=== PATIENT | female | born 1960 | race Caucasian/White ===

== ENCOUNTER → 2022-09-29 23:18 | Outpatient (CLI) | payer MEDICARE, OTHER, SELFPAY | PROVIDERS: PCP Nurse Practitioner Family; Visit Provider Nurse Practitioner Family | DX: L02.416 Cutaneous abscess of left lower limb (principal); T14.8XXA Other injury of unspecified body region, initial encounter | CPT/HCPCS: 87070; 87205 ==

== ENCOUNTER → 2022-10-08 16:49 | Outpatient (CLI) | payer MEDICARE, OTHER, SELFPAY ==
[2022-10-08 12:49] LABS: Basophils % 0.5 % (0.1-2.0); Eosinophils # 0.2 K/mm3 (0.0-0.4); Hematocrit 41.8 % (37.0-47.0); Hemoglobin 13.7 g/dL (12.2-16.2); Lymphocytes # 3.4 K/mm3 (0.7-4.5); Lymphocytes % 43.3 % (10-50); Mean Corpuscular HGB Conc 32.7 g/dL (31.8-35.4); Mean Corpuscular Hemoglobin 29.6 pg (27.0-31.2); Mean Corpuscular Volume 90.7 fl (81-99); Mean Platelet Volume 9.3 fl (7.4-10.4); Monocytes # 0.3 K/mm3 (0.1-1.0); Monocytes % 4.1 % (1.7-9.3); Neutrophils # 3.9 K/mm3 (1.8-7.8); Neutrophils % 49.1 % (37.0-80.0); Platelet Count 325 K/mm3 (142-424); Red Blood Count 4.61 M/mm3 (4.20-5.40); Red Cell Distribution Width 13.5 % (11.5-17.5); White Blood Count 7.9 K/mm3 (4.8-10.8)
[2022-10-08 14:13] LABS: Alanine Aminotransferase 66 U/L (12-78); Albumin/Globulin Ratio 1.3 (1.1-1.8); Alkaline Phosphatase 113 U/L (38-126); Anion Gap 11.9 mEq/L (5-15); Aspartate Amino Transferase 72 U/L (14-36); Blood Urea Nitrogen 9 mg/dl (7-17); Calcium 9.3 mg/dl (8.4-10.2); Carbon Dioxide 34 mmol/L (22.0-30.0); Chloride 100 mmol/L (98-107); Chol/HDL Ratio 2.1 (1-3.5); Cholesterol 148 mg/dl (140-200); Estimated Glomerular Filt Rate 63 ml/min (>60); GFR (African American) 77 ML/MIN (>60); Globulin 3.2 g/dL (1.3-3.2); Glucose 89 mg/dl (74-100); HDL Cholesterol 69 mg/dl (40-60); Potassium 3.9 mmoL/L (3.5-5.1); Sodium 142 mmol/L (136-145); Total Protein,Serum 7.2 g/dl (6.3-8.2); Triglycerides 215 mg/dl (30-150); VLDL Cholesterol 43 mg/dL (0-40)
[2022-10-08 14:18] LABS: Hemoglobin A1C 5.3 % (4.0-6.0)
[2022-10-08 14:19] LABS: Bilirubin,Total 0.1 mg/dl (0.2-1.3)
[2022-10-08 14:23] LABS: Direct LDL Cholesterol 49.27 mg/dL (100-129)
[2022-10-08 14:43] LABS: Thyroid Stimulating Hormone 1.08 uIU/mL (0.465-4.68)
== END ==
PROVIDERS: PCP Emergency Medicine; Visit Provider Emergency Medicine
DX: L30.9 Dermatitis, unspecified (principal); Z79.899 Other long term (current) drug therapy
CPT/HCPCS: 80053; 80061; 83036; 84443; 85025

== ENCOUNTER 2022-12-21 15:24 | Emergency (ER) | payer MEDICARE, OTHER, SELFPAY ==
[2022-12-21 15:40] VITALS: BP 185/90; PULSE 69; RESP 20; TEMP 36.8; O2SAT 96; BMI 20.4
--- NOTE | 2022-12-21 15:42 | HMH.EDGENADL ---
Discharge Plan Disposition Patient Disposition: Home, Self-Care Condition: Good Prescriptions Prescriptions: No Action clonazepam [Klonopin] 0.5 mg tablet 0.5 mg PO BID Qty: 60 1RF gabapentin 600 mg tablet 600 mg PO TID Qty: 90 1RF cephalexin 500 mg capsule 500 mg PO BID Qty: 14 0RF sumatriptan succinate 25 mg tablet See Rx Instructions PO .COMPLEX Qty: 10 0RF Rx Instructions: take 1 tab at onset of headache; if no relief may repeat 1 tab after at least 2 hrs; max = 4 tabs/24 hr PO mupirocin 2 % ointment 1 applic topical BID Qty: 22 0RF hydrocodone-acetaminophen 5-325 mg tablet 1 tab PO BID Qty: 20 0RF Referrals Follow up/Referrals: Alexx Henderson MD [Primary Care Provider] - See instructions Activity Restrictions/Add. Instructions Additional Instructions/Restrictions: Please follow-up with your primary care provider and with previously scheduled urology appointment.. Please return to the emergency department if you develop any new or worsening symptoms or become concerned for your health. Clinical Impressions Clinical Impression: Hematuria, Presence of indwelling Wilder catheter Instructions Patient Instructions: How to Care for Your Wilder Catheter -- Female Discharge ED Provider: Jeffrey Vogel General Adult HPI General Chief complaint: Urogenital-Female Stated complaint: cannot urinate, has wilder cath in place Time Seen by Provider: 12/21/22 15:32 History of Present Illness HPI narrative: 62-year-old female, history of anxiety, presents with concerns about her urinary catheter. She reports that she was having difficulty urinating, felt full and tender approximately 4 days ago. She was seen at [facility] that time where a Wilder catheter was placed. She was instructed to leave it in until follow-up with urology on 12/27, 6 days from now. She reports that she was initially having good output, emptying the bag 2-3 times per day. Since yesterday she has had much less urinary output. Denies any blood in the urine, sense of pelvic fullness, abdominal pain. Denies any fevers chills or systemic symptoms. She reports that she is unsure why she had difficulty urinating to begin with and was not given any answers at [facility]. She reports no prior history of pelvic/abdominal surgery nor prior urinary obstruction. Denies any current flank pain. She has urine present in the bag currently, last emptied it 45 minutes ago. She reports normal p.o. intake. Reports history of hysterectomy, denies history of pelvic organ prolapse. Related Data Previous Rx's Medication Instructions Recorded mupirocin 2 % topical ointment 1 applic topical BID #22 grams 09/29/22 sumatriptan succinate 25 mg tablet See Rx Instructions PO .COMPLEX 09/29/22 #10 tabs hydrocodone 5 mg-acetaminophen 325 1 tab PO BID #20 tabs 10/08/22 mg tablet cephalexin 500 mg capsule 500 mg PO BID #14 caps 12/15/22 clonazepam 0.5 mg tablet (Klonopin) 0.5 mg PO BID #60 tabs 12/15/22 gabapentin 600 mg tablet 600 mg PO TID #90 tabs 12/15/22 Allergies Allergy/AdvReac Type Severity Reaction Status Date / Time codeine Allergy Intermediate Cramping Verified 12/15/22 13:48 of the Muscles toradol Allergy Severe Anaphylaxis Uncoded 12/15/22 13:48 [facility] Disclaimer: The information contained in this section may have been updated after the patient was seen, as this information can be updated by other users. Medical History Anxiety Opiate addiction Surgical History Hx of bilateral hip replacements Family History Other Asthma Cancer Coronary artery disease Diabetes Heart attack Hyperlipidemia Social History Smoking Status: Never smoker alcohol intak
[2022-12-21 16:00] VITALS: BP 168/70; PULSE 65; O2SAT 98
[2022-12-21 16:12] LABS: Basophils % 0.6 % (0.1-2.0); Eosinophils # 0.3 K/mm3 (0.0-0.4); Eosinophils % 4.1 % (0.1-12.0); Hematocrit 40.1 % (37.0-47.0); Hemoglobin 12.7 g/dL (12.2-16.2); Lymphocytes # 3.3 K/mm3 (0.7-4.5); Lymphocytes % 44.5 % (10-50); Mean Corpuscular HGB Conc 31.7 g/dL (31.8-35.4); Mean Corpuscular Hemoglobin 29.1 pg (27.0-31.2); Mean Corpuscular Volume 91.9 fl (81-99); Mean Platelet Volume 8.6 fl (7.4-10.4); Monocytes # 0.5 K/mm3 (0.1-1.0); Monocytes % 6.2 % (1.7-9.3); Neutrophils # 3.3 K/mm3 (1.8-7.8); Neutrophils % 44.7 % (37.0-80.0); Platelet Count 278 K/mm3 (142-424); Red Blood Count 4.37 M/mm3 (4.20-5.40); White Blood Count 7.5 K/mm3 (4.8-10.8)
--- NOTE | 2022-12-21 16:12 | PC.NURSE ---
15ml in bladder via bladder scanner
[2022-12-21 16:25] LABS: Alanine Aminotransferase 24 U/L (12-78); Albumin Level 3.7 g/dl (3.5-5.0); Albumin/Globulin Ratio 1.2 (1.1-1.8); Alkaline Phosphatase 68 U/L (38-126); Anion Gap 6.4 mEq/L (5-15); Aspartate Amino Transferase 36 U/L (14-36); Bilirubin,Total 0.2 mg/dl (0.2-1.3); Blood Urea Nitrogen 5 mg/dl (7-17); Calcium 8.8 mg/dl (8.4-10.2); Carbon Dioxide 31 mmol/L (22.0-30.0); Chloride 106 mmol/L (98-107); Creatinine Clearance Estimated 50 mL/min (50-200); Estimated Glomerular Filt Rate 85 ml/min (>60); GFR (African American) 103 ML/MIN (>60); Glucose 92 mg/dl (74-100); Potassium 3.4 mmoL/L (3.5-5.1); Sodium 140 mmol/L (136-145); Total Protein,Serum 6.7 g/dl (6.3-8.2)
[2022-12-21 16:30] VITALS: BP 146/69; PULSE 61; O2SAT 98
[2022-12-21 16:31] LABS: Microscopic, Urine URINE MICROSCOPIC (MICROSCOPIC)
[2022-12-21 16:35] LABS: Appearance,Urine CLEAR (Clear); Bilirubin,Urine Negative (Negative); Blood, Urine 3+ (Negative); Color,Urine YELLOW (Yellow); Glucose,Urine (UA) Negative (Negative); Ketones,Urine Negative (Negative); Leukocyte Esterase,Urine TRACE (Negative); Nitrate,Urine Negative (Negative); Protein,Urine 1+ (Negative); Urobilinogen,Urine 0.2 EU/dl (0.2)
[2022-12-21 16:53] LABS: Bacteria,Urine 2+ /lpf; Calcium Oxalate Crystals,Urine Trace /lpf; RBC,Urine 20-50 #/hpf (0-3); Squamous Epithelial Cell,Urine Occasional #/hpf (0-5); WBC,Urine Occasional #/hpf (0-3)
[2022-12-21 17:12] VITALS: BP 140/70; PULSE 62; RESP 18; TEMP 36.8; O2SAT 98
--- NOTE | 2022-12-24 08:10 | PC.NURSE ---
made contacted with pt daughter (used number listed in pt chart). Pt daughter reports pt does not have a working phone at this time. Asked if daughter could make contact with pt so that I could follow up with pt. States she will have pt call ER back. Did verify pharmacy with pts daughter, correct as listed on chart. Was trying to make contact with pt r/t Dr. Vogel request r/t urine culture results and needing to call in antibiotic for pt.
== END 2022-12-21 17:18 | disposition home or self-care (01) ==
PROVIDERS: Emergency Provider Emergency Medicine; PCP Emergency Medicine
DX: R31.9 Hematuria, unspecified (principal); F41.9 Anxiety disorder, unspecified
CPT/HCPCS: 80053; 81001; 85025; 87086; 87088; 87186; 99285

== ENCOUNTER 2023-05-06 09:18 | Observation (INO) | payer MEDICARE, OTHER, SELFPAY ==
[2023-05-06] VITALS (8 sets, daily range): BP systolic 138–209; BP diastolic 63–105; PULSE 59–72; RESP 18–20; TEMP 36.6–36.8; O2SAT 95–100; BMI 24.0; BMI 22.3
--- NOTE | 2023-05-06 09:18 | ECG_ITS ---
APPROVED REPORT Exam: Resting ECG HR:67 bpm ECG Measurements Heart Rate 67 AXES NV 168 P 68 QRSd 86 QRS 70 QT 392 T 48 QTc 407 Conclusion SINUS RHYTHM NONSPECIFIC T-WAVE ABNORMALITY BORDERLINE ECG UNCONFIRMED REPORT Electronically signed by : Thiago Maxwell MD 05/06/2023 17:59:19
--- NOTE | 2023-05-06 09:19 | PC.NURSE ---
FSBS: 130 Dr. Martinez at BS for pt eval
--- NOTE | 2023-05-06 09:24 | CT_ITS ---
FINAL REPORT TECHNIQUE: NASCET technique utilized for stenosis evaluation. CLINICAL HISTORY: right sided weakness x 2 days stroke protocol COMPARISON: None FINDINGS: RIGHT CAROTID: There is moderate vascular calcification in the proximal internal carotid artery, with less than 50% stenosis. LEFT CAROTID: There is moderate vascular calcification in the proximal internal carotid artery, with less than 50% stenosis. VERTEBRALS: The vertebrals are patent. No significant stenosis is present. The left vertebral artery is dominant. IMPRESSION: Moderate vascular calcification with less than 50% stenosis in the carotid arteries bilaterally. The vertebral arteries are unremarkable in appearance. Reviewed, Interpreted and Dictated by Cuate Moya MD Transcribed by Oriana Loco Authenticated and [facility]
--- NOTE | 2023-05-06 09:24 | CT_ITS ---
FINAL REPORT TECHNIQUE: thin section axial CT with and without IV contrast supplemented with multiplanar 3-D reconstruction of the head. This study was performed with techniques to keep radiation doses as low as reasonably achievable, (ALARA)individualized dose reduction techniques using automated exposure control or adjustment of mA and/or kV according to the patient's size were employed. NASCET technique utilized for stenosis evaluation. CLINICAL HISTORY: right sided weakness x 2 days stroke protocol COMPARISON: None FINDINGS: HEAD: CTA: The cranial circulation is unremarkable. There is no significant stenosis, aneurysm or occlusion. NECK: RIGHT CAROTID: There is moderate vascular calcification of the proximal internal carotid artery. There is less than 50% stenosis in the carotid bifurcation. LEFT CAROTID: There is moderate vascular calcification of the proximal internal carotid artery. There is less than 50% stenosis in the carotid bifurcation. VERTEBRALS: The vertebrals are patent. No significant stenosis is present. The left vertebral artery is dominant. IMPRESSION: No significant intracranial arterial abnormality. Less than 50% stenosis of the internal carotid arteries bilaterally. Reviewed, Interpreted and Dictated by Cuate Moya MD Transcribed by Oriana Loco Authenticated and [facility]
--- NOTE | 2023-05-06 09:24 | CT_ITS ---
FINAL REPORT TECHNIQUE: multiple axial CT images were performed from the foramen magnum to the vertex without enhancement. CLINICAL HISTORY: right sided weakness x 2 days stroke protocol COMPARISON: None FINDINGS: The ventricles are enlarged. There is mild diffuse atrophy. There is no evidence of hemorrhage. No masses are identified. No extra-axial fluid is seen. Minimal right maxillary mucoperiosteal thickening is present. IMPRESSION: No acute intracranial abnormality. Reviewed, Interpreted and Dictated by Cuate Moya MD Transcribed by Oriana Loco Authenticated and . [facility]
--- NOTE | 2023-05-06 09:27 | HMH.EDGENADL ---
Discharge Plan Disposition Patient Disposition: Admitted Prescriptions Prescriptions: No Action sumatriptan succinate 25 mg tablet See Rx Instructions PO .COMPLEX Qty: 10 0RF Rx Instructions: take 1 tab at onset of headache; if no relief may repeat 1 tab after at least 2 hrs; max = 4 tabs/24 hr PO gabapentin 600 mg tablet 600 mg PO TID Qty: 90 1RF clonazepam [Klonopin] 0.5 mg tablet 0.5 mg PO BID Qty: 60 1RF oxycodone-acetaminophen [Percocet] 5-325 mg tablet 1 tab PO BID Qty: 60 0RF Clinical Impressions Clinical Impression: Acute CVA (cerebrovascular accident) Discharge ED Provider: Lanre Martinez General Adult HPI General Chief complaint: Neuro Symptoms/Deficit Stated complaint: weakness Time Seen by Provider: 05/06/23 09:24 History of Present Illness HPI narrative: Patient is a 62-year-old female present today with right-sided weakness as well as facial weakness and drooling. States this began approximately 48 hours ago she states that she was just waiting to see if it got better and they decided to come to the hospital because her sister had an MRI scheduled today and she thought she would get checked out. No history of any cardiovascular disease in the past specifically no history of any coronary artery disease peripheral artery disease hypertension etc. She states she is only treated for pain and nerve symptoms with her primary care doctor Dr. Henderson. Does have a chronic history of smoking but denies any other significant medical problems. Related Data Previous Rx's Medication Instructions Recorded sumatriptan succinate 25 mg tablet See Rx Instructions PO .COMPLEX 09/29/22 #10 tabs clonazepam 0.5 mg tablet (Klonopin) 0.5 mg PO BID #60 tabs 03/28/23 gabapentin 600 mg tablet 600 mg PO TID #90 tabs 03/28/23 oxycodone-acetaminophen 5 mg-325 1 tab PO BID #60 tabs 03/28/23 mg tablet (Percocet) Allergies Allergy/AdvReac Type Severity Reaction Status Date / Time codeine Allergy Intermediate Cramping Verified 03/28/23 15:04 of the Muscles toradol Allergy Severe Anaphylaxis Uncoded 02/01/23 15:35 [facility] Disclaimer: The information contained in this section may have been updated after the patient was seen, as this information can be updated by other users. Medical History AAA (abdominal aortic aneurysm) Anxiety Opiate addiction Surgical History Hx of bilateral hip replacements Family History Other Asthma Cancer Coronary artery disease Diabetes Heart attack Hyperlipidemia Social History Smoking Status: Current every day smoker alcohol intake: never substance use type: former substance user and opiates current occupational status: disabled Travel in the last 8 weeks: None household members: other details: sister lives independently: No ROS Obtained: Yes All systems reviewed & no additional complaints except as documented Physical Exam General General appearance: alert Respiratory Respiratory exam: Present normal lung sounds bilaterally; Absent respiratory distress Cardiovascular Cardiovascular exam: Present regular rate; Absent tachycardia Abdominal Exam Abdominal exam: Present soft; Absent distention or tenderness Neurological Exam Neurological exam: Present alert and oriented X3 Expanded Neurological Exam Patient oriented to: Present person, place and time Speech: Present fluid speech (Some slight dysarthria but able to be understood without difficulty); Absent receptive aphasia, expressive aphasia, total aphasia or anomia Cranial nerves: Normal: EOM function (II, III, IV, ), facial sensation (V), gag reflex (IX), spinal accessory function (XI) and tongue deviation (XII) and Abnormal Left: facial palsy (VII) Cerebellar
--- NOTE | 2023-05-06 09:29 | PC.NURSE ---
Pt gone to RAD via stretcher
[2023-05-06 09:34] LABS: POC Glucose,Bedside 130 (70-110)
--- NOTE | 2023-05-06 09:43 | PC.NURSE ---
Pt returned from RAD
[2023-05-06 09:49] LABS: Basophils # 0.1 K/mm3 (0-0.2); Basophils % 0.8 % (0.1-2.0); Eosinophils # 0.2 K/mm3 (0.0-0.4); Eosinophils % 2.6 % (0.1-12.0); Hematocrit 41.9 % (37.0-47.0); Lymphocytes % 38.1 % (10-50); Mean Corpuscular HGB Conc 33.5 g/dL (31.8-35.4); Mean Corpuscular Hemoglobin 31.8 pg (27.0-31.2); Mean Corpuscular Volume 94.9 fl (81-99); Mean Platelet Volume 8.6 fl (7.4-10.4); Monocytes # 0.4 K/mm3 (0.1-1.0); Monocytes % 5.1 % (1.7-9.3); Neutrophils # 4.2 K/mm3 (1.8-7.8); Neutrophils % 53.4 % (37.0-80.0); Platelet Count 277 K/mm3 (142-424); Red Blood Count 4.41 M/mm3 (4.20-5.40); Red Cell Distribution Width 13.4 % (11.5-17.5); White Blood Count 7.8 K/mm3 (4.8-10.8)
[2023-05-06 09:59] LABS: Chloride 102 mmol/L (98-107); Potassium 3.1 mmoL/L (3.5-5.1); Sodium 143 mmol/L (136-145)
[2023-05-06 10:01] LABS: Blood Urea Nitrogen 8 mg/dl (7-17); Creatinine Clearance Estimated 58 mL/min (50-200); Estimated Glomerular Filt Rate 85 ml/min (>60); GFR (African American) 103 ML/MIN (>60)
[2023-05-06 10:02] LABS: Alanine Aminotransferase 87 U/L (12-78); Albumin Level 4.4 g/dl (3.5-5.0); Albumin/Globulin Ratio 1.2 (1.1-1.8); Alkaline Phosphatase 90 U/L (38-126); Anion Gap 11.1 mEq/L (5-15); Aspartate Amino Transferase 64 U/L (14-36); Bilirubin,Total 0.4 mg/dl (0.2-1.3); Carbon Dioxide 33 mmol/L (22.0-30.0); Globulin 3.7 g/dL (1.3-3.2); Glucose 101 mg/dl (74-100); Total Protein,Serum 8.1 g/dl (6.3-8.2)
[2023-05-06 10:14] LABS: Activated Partial Thrombo Time 26.2 seconds (22.8-30.6); INR 0.97 (0.9-1.1); Prothrombin Time 10.5 seconds (10.1-12.5)
[2023-05-06 10:19] LABS: Troponin I < 0.01 ng/ml (0.00-0.034)
--- NOTE | 2023-05-06 11:00 | PC.NURSE ---
Dr. Martinez s/w Dr. Wynne for admission
--- NOTE | 2023-05-06 11:02 | PC.NURSE ---
Dr. Martinez at BS to update pt on results and POC
--- NOTE | 2023-05-06 11:02 | PC.NURSE ---
Jennifer s/w Naya in Care Management for admission to Hospitalist Dr. Wynne for CVA
--- NOTE | 2023-05-06 12:13 | PC.NURSE ---
Pt left her room and to [facility]. States I wasn't trying to run away, I just wanted to look for something in my car . Let pt know we are calling report now and she can not leave the hospital with IV in place. Denies wanting to leave AMA. Stated well I didn't know I couldn't go outside . Now asking for nicotine patch.
--- NOTE | 2023-05-06 12:13 | PC.NURSE ---
report called to receiving rn
--- NOTE | 2023-05-06 12:38 | HMH.PHAINT1 ---
Pharmacy Intervention Comments: MEDICATION RECONCILIATION COMPLETE USING LIST FROM MOST RECENT MD OFFICE VISIT, EXTERNAL PHARMACY FILL HISTORY, AND [facility] REPORT.
--- NOTE | 2023-05-06 12:42 | MR_ITS ---
FINAL REPORT CLINICAL HISTORY: RIGHT SIDED WEAKNESS RULE OUT STROKE FINDINGS: Multi planar MR imaging was obtained through the brain without contrast. The midline structures appear intact. There is no evidence of Chiari malformation. There are mild scattered foci of increased signal in the deep white matter bilaterally. On diffusion-weighted images there is no evidence of restricted diffusion. There is mild lobular mucoperiosteal thickening in the right maxillary sinus. The seventh and eighth nerve root complexes are intact. IMPRESSION: Minimal changes of chronic microvascular ischemia. Reviewed, Interpreted and Dictated by Cuate Moya MD Transcribed by Mary Brown Authenticated and [facility]
--- NOTE | 2023-05-06 13:42 | HMH.SLDYSPHA ---
Speech & Language Evaluation Speech/Language Dysphagia Evaluation Start: 05/06/23 13:25 Freq: ONCE Status: Active Protocol: Document 05/06/23 13:25 NIKOSHOLLI (Rec: 05/06/23 13:42 NIKOSHOLLI [id number]) Dysphagia Assess/Goals/Plan Assessment Date of Evaluation: 05/06/23 Evaluation Type Initial Certification Assessment/Problems possible cva per MD order Does Patient Qualify for Service No Qualify/Failure Comment Based on clinical observations made during CSE and cognitive -linguistic evaluation, swallowing, mastication/ manipulation, and cog- linguistic skills are WFL no further skilled speech therapy services are warranted at this time. Recommendations PHYSICIAN CERTIFICATION: The specified therapy services are required, authorized, and reviewed every 30 days. Diet Recommendations Mechanical Soft Liquid Type Recommendations Normal/Thin SL Swallow Guidelines Standard Aspiration Prec. Dysphagia Swallow Precautions/Strategies Sitting Upright (90 deg),Small Bites and Sips,Alternate Liquids/Solids Plan Pt/Guardian verbally ack understanding Yes of dx/prognosis/goals G -code Required No Education Instructions provided Discussed CSE results and diet recommendations with pt, nursing, and care management all of which expressed understanding. Pt/Caregiver able to recall information Able to recall/restate Reinforcement needed No Speech & Language HPI History Present Illness Description of Patient Problem DENITRATOR pulled following information from ER documentation, Patient is a 62-year-old female present today with right-sided weakness as well as facial weakness and drooling. States this began approximately 48 hours ago she states that she was just waiting to see if it got better and they decided to come to the hospital because her sister had an MRI scheduled today and she thought she would get checked out. No history of any cardiovascular disease in the
[2023-05-06 13:49] LABS: Troponin I < 0.01 ng/ml (0.00-0.034)
--- NOTE | 2023-05-06 13:55 | HMH.PTEV ---
Physical Therapy Evaluation Rehab PT IP Evaluation Start: 05/06/23 12:29 Freq: ONCE Status: Active Protocol: Document 05/06/23 13:52 PHORNE (Rec: 05/06/23 13:55 PHORNE [id number]) Subjective/History History History 62 yowf adm to [facility] with ! 48 hr hx of R sided weakness and facial droop with drooling. She reports she lives with her sister and she is independent with all mobility and ADLs prior to adm. PMH of: AAA ( abdominal aortic aneurysm) Anxiety Opiate addiction Subjective Subjective Current;y she reports hip pain B, but I have that all the time. New diagnosis of cancer in past 12 No months? Rehab PT IP Eval Objective Appearance Patient Behavior Appropriate Patient Orientation Person,Place,Time Difficulty following instructions none Speech Pattern Clear Ambulation Patient Able to Ambulate Yes Ambulation Observation IP General Gait Pattern Observation No Deviations/Normal Ambulation Distance (feet) 20 Ambulation Assistive Device None Ambulation Ability Supervision/Stand by Balance Ability to Arise Able, uses arms to help Sitting Balance Steady, safe Standing Balance Steady, wide stance Dynamic Sitting Balance Ability Good Dynamic Standing Balance Ability Good Transfers Bed Transfer Ability Supervision/Stand by Chair Transfer Ability Supervision/Stand by Sit to Stand Bed Transfer Ability Supervision/Stand by Sit to Stand Chair Transfer Ability Supervision/Stand by ROM All Extremities PT ROM Status WFL MMT All Extremities PT MMT WFL Rehab PT IP prob,goals,plan Problems Date of Evaluation: 05/06/23 Discharge Plan PT Discharge Plan Pt is appropriate to return home once medically stable for d/c. No current inpatient therapy needa at this time, but would be good candidate for outpatient therapy services. Eval Complexity Eval Charge Codes 17202 - High Complexity PHYSICIAN CERTIFICATION: I certify the specified therapy services for Francheska Wells are required, authorized, and reviewed every 30 days.
[2023-05-06 14:39] LABS: Hemoglobin A1C 5.4 % (4.0-6.0)
[2023-05-06 16:12] LABS: Troponin I < 0.01 ng/ml (0.00-0.034)
--- NOTE | 2023-05-06 18:00 | EXP.HP ---
History of Present Illness *Admission Date: 05/06/23 *Reason for visit:: Right-sided weakness right-sided weakness, numbness *History of present illness: Patient is a 62-year-old female with no significant past medical history but active smoking who presented to hospital due to right-sided weakness, patient mentions she does not go to doctors often, her symptoms have been there for around 48 hours. Patient mentions she came to the hospital because her sister is also in the hospital and she wanted to be checked out herself as well. Patient otherwise denied difficulty swallowing difficulty speaking, denied diarrhea constipation dysuria fevers chills. Assessment Right-sided weakness, facial droop likely CVA Tobacco use Plan Aspirin, statin MRI brain without contrast was performed in ED-negative for acute CVA Consult PT/OT Monitor and replace electrolytes DVT prophylaxis-Lovenox Likely discharge in the morning after PT OT evaluation [facility] Disclaimer: The information contained in this section may have been updated after the patient was seen, as this information can be updated by other users. Medical History (Updated 05/06/23 @ 18:01 by Daniel Wynne MD) AAA (abdominal aortic aneurysm) Anxiety Opiate addiction Surgical History (Updated 05/06/23 @ 13:29 by Shweta Sheffield RN) History of hysterectomy Hx of bilateral hip replacements Family History Other Asthma Cancer Coronary artery disease Diabetes Heart attack Hyperlipidemia Social History (Updated 05/06/23 @ 13:29 by Shweta Sheffield RN) Smoking Status: Current every day smoker alcohol intake: never substance use type: former substance user and opiates current occupational status: disabled Travel in the last 8 weeks: None household members: other details: sister lives independently: No Meds Home Medications and Allergies Home Medications Medication Instructions Recorded Confirmed Type clonazepam 0.5 mg tablet (Klonopin) 0.5 mg PO BID Anxiety 05/06/23 05/06/23 History gabapentin 600 mg tablet 600 mg PO TID Pain 05/06/23 05/06/23 History oxycodone-acetaminophen 5 mg-325 1 tab PO BID Pain 05/06/23 05/06/23 History mg tablet (Percocet) sumatriptan succinate 25 mg tablet 25 mg PO DAILYP PRN Migraine 05/06/23 05/06/23 History Headache New Prescriptions to Start Prescriptions: Allergies Allergy/AdvReac Type Severity Reaction Status Date / Time tramadol Allergy Severe Seizure Verified 05/06/23 13:19 codeine Allergy Intermediate Cramping Verified 05/06/23 13:18 of the Muscles toradol Allergy Severe Anaphylaxis Uncoded 02/01/23 15:35 Exam Data for Last 24 hours Vital signs and Labs for Last 24 Hours: Temp Pulse Resp BP Pulse Ox O2 Del Method 97.9 F 65 18 163/91 H 98 Room Air 05/06/23 16:00 05/06/23 16:00 05/06/23 16:00 05/06/23 16:00 05/06/23 16:00 05/06/23 16:00 Laboratory Results - last 24 hr 05/06/23 09:19: POC Glucose 130 H 05/06/23 09:24: Hemoglobin A1c 5.4 05/06/23 09:26: WBC 7.8, RBC 4.41, Hgb 14.0, Hct 41.9, MCV 94.9, MCH 31.8 H, MCHC 33.5, RDW 13.4, Plt Count 277, MPV 8.6, Neut % (Auto) 53.4, Lymph % (Auto) 38.1, Norman % (Auto) 5.1, Eos % (Auto) 2.6, Baso % (Auto) 0.8, Neut # (Auto) 4.2, Lymph # (Auto) 3.0, Norman # (Auto) 0.4, Eos # (Auto) 0.2, Baso # (Auto) 0.1, PT 10.5, INR 0.97, APTT 26.2, Sodium 143, Potassium 3.1 L, Chloride 102, Carbon Dioxide 33 H, Anion Gap 11.1, BUN 8, Creatinine 0.70, Estimated Creat Clear 58, Estimated GFR 85, Est GFR ( Amer) 103, Glucose 101 H, Calcium 9.0, Total Bilirubin 0.4, AST 64 H, ALT 87 H, Alkaline Phosphatase 90, Troponin I < 0.01, Total Protein 8.1, Albumin 4.4, Globulin 3.7 H, Albumin/Globulin Ratio 1.2 05/06/23 13:00: Troponin I < 0.01 05/06/23 15:30: Troponin I < 0.01 I & O for Last 24 hours: Intake & Output 05/03/23 05/04/23 05/05/23 05/06/23 23:59 23:59 23:59 23:59
--- NOTE | 2023-05-06 18:51 | PC.NURSE ---
Patient new admit from ER with CVA. PAtient A&Ox4, patient has right sided facial droop x2 days and a right sided drift with mild weakness. VSS
[2023-05-06 20:19] LABS: POC Glucose,Bedside 124 (70-110)
[2023-05-07] VITALS: BP 130/72; PULSE 57; PULSE 61; RESP 18; TEMP 36.9; O2SAT 94
[2023-05-07 04:00] VITALS: BP 137/74; PULSE 60; PULSE 62; RESP 20; TEMP 36.8; O2SAT 95; BMI 22.6
[2023-05-07 05:15] LABS: POC Glucose,Bedside 125 (70-110)
--- NOTE | 2023-05-07 06:21 | PC.NURSE ---
PATIENT RECEIVED NEURONTIN 600 MG AND PERCOCET 5/325 MG FOR CHRONIC JOINT PAIN AND BACK PAIN. VSS/AFEBRILE. FSBS LAST NIGHT WAS 124 AND 125 THIS AM.
[2023-05-07 07:35] LABS: Chloride 104 mmol/L (98-107); Potassium 3.3 mmoL/L (3.5-5.1); Sodium 140 mmol/L (136-145)
[2023-05-07 07:38] LABS: Anion Gap 7.3 mEq/L (5-15); Basophils % 0.5 % (0.1-2.0); Blood Urea Nitrogen 5 mg/dl (7-17); Carbon Dioxide 32 mmol/L (22.0-30.0); Creatinine Clearance Estimated 55 mL/min (50-200); Eosinophils # 0.2 K/mm3 (0.0-0.4); Eosinophils % 2.9 % (0.1-12.0); Estimated Glomerular Filt Rate 85 ml/min (>60); GFR (African American) 103 ML/MIN (>60); Hematocrit 40.5 % (37.0-47.0); Hemoglobin 13.4 g/dL (12.2-16.2); Lymphocytes # 2.5 K/mm3 (0.7-4.5); Lymphocytes % 43.4 % (10-50); Mean Corpuscular Hemoglobin 31.3 pg (27.0-31.2); Mean Corpuscular Volume 94.8 fl (81-99); Mean Platelet Volume 8.5 fl (7.4-10.4); Monocytes # 0.4 K/mm3 (0.1-1.0); Monocytes % 6.7 % (1.7-9.3); Neutrophils # 2.7 K/mm3 (1.8-7.8); Neutrophils % 46.4 % (37.0-80.0); Platelet Count 270 K/mm3 (142-424); Red Blood Count 4.27 M/mm3 (4.20-5.40); Red Cell Distribution Width 13.6 % (11.5-17.5); White Blood Count 5.7 K/mm3 (4.8-10.8)
[2023-05-07 07:39] LABS: Calcium 8.6 mg/dl (8.4-10.2); Glucose 88 mg/dl (74-100)
[2023-05-07 08:00] VITALS: BP 131/77; PULSE 60; PULSE 61; RESP 18; TEMP 36.8; O2SAT 93
--- NOTE | 2023-05-07 08:20 | PC.NURSE ---
pts medical billing representative are equal on both sides. slight droop to left side of mouth. occasionally speech is slurred. pt states she feels like drool accumulates in her mouth while shes trying to talk. says she feels generally weak but feels deficits have improved from original onset.
[2023-05-07 12:00] VITALS: BP 113/67; PULSE 55; PULSE 63; RESP 18; TEMP 36.9; O2SAT 95
--- NOTE | 2023-05-07 12:34 | EXP.DC.SUM ---
General Admission date:: 05/06/23 Discharge date: 05/07/23 HPI HPI HPI: Patient is a 62-year-old female with no significant past medical history but active smoking who presented to hospital due to right-sided weakness, patient mentions she does not go to doctors often, her symptoms have been there for around 48 hours. Patient mentions she came to the hospital because her sister is also in the hospital and she wanted to be checked out herself as well. Patient otherwise denied difficulty swallowing difficulty speaking, denied diarrhea constipation dysuria fevers chills. Hospital Course Hospital Course Hospital Course: Patient was seen and evaluated at the bedside on the day of discharge. Patient is stable for discharge. Patient wishes to be discharged. All patient questions were answered and patient was given time to ask questions. Patient was discharged in stable condition. Patient understands that she can return to ER in case of any sudden changes in health. Total time spent on DC - 38 mins Patient is a 62-year-old female with no significant past medical history but active smoking who presented to hospital due to right-sided weakness, patient mentions she does not go to doctors often, her symptoms have been there for around 48 hours. Patient mentions she came to the hospital because her sister is also in the hospital and she wanted to be checked out herself as well. Patient otherwise denied difficulty swallowing difficulty speaking, denied diarrhea constipation dysuria fevers chills. Assessment Right-sided weakness, facial droop likely CVA Tobacco use MRI negative for CVA DVT prophylaxis-Lovenox ok to DC home and no needs per OT/OT neurology referral given Exam Data for Last 24 hours Vital signs and Labs for Last 24 Hours: Temp Pulse Resp BP Pulse Ox O2 Del Method 98.2 F 61 18 131/77 93 L Room Air 05/07/23 08:00 05/07/23 08:00 05/07/23 08:00 05/07/23 08:00 05/07/23 08:00 05/07/23 11:00 Laboratory Results - last 24 hr 05/06/23 09:24: Hemoglobin A1c 5.4 05/06/23 13:00: Troponin I < 0.01 05/06/23 15:30: Troponin I < 0.01 05/06/23 19:54: POC Glucose 124 H 05/07/23 05:09: POC Glucose 125 H 05/07/23 06:45: WBC 5.7 D, RBC 4.27, Hgb 13.4, Hct 40.5, MCV 94.8, MCH 31.3 H, MCHC 33.0, RDW 13.6, Plt Count 270, MPV 8.5, Neut % (Auto) 46.4, Lymph % (Auto) 43.4, Becker % (Auto) 6.7, Eos % (Auto) 2.9, Baso % (Auto) 0.5, Neut # (Auto) 2.7, Lymph # (Auto) 2.5, Becker # (Auto) 0.4, Eos # (Auto) 0.2, Baso # (Auto) 0.0, Sodium 140, Potassium 3.3 L, Chloride 104, Carbon Dioxide 32 H, Anion Gap 7.3, BUN 5 L D, Creatinine 0.70, Estimated Creat Clear 55, Estimated GFR 85, Est GFR ( Amer) 103, Glucose 88, Calcium 8.6 I & O for Last 24 hours: Intake & Output 05/04/23 05/05/23 05/06/23 05/07/23 23:59 23:59 23:59 23:59 Intake Total 630 / 1070 440 / 440 Output Total 0 / 0 Balance 630 / 1070 440 / 440 Weight 58.967 kg 60.192 kg Constitutional Constitutional: no acute distress *Routine HEENT Exam Head: Present normocephalic Eye: Present EOMI and PERRL ENT: Present mucous membranes moist *Routine Neck Exam Neck: Present supple; Absent lymphadenopathy *Routine Respiratory Exam Respiratory: Present CTA bilaterally *Routine Cardiovascular Exam Cardiovascular: Present RRR *Routine Abdominal Exam Abdominal: Present soft and normoactive bowel sounds; Absent tenderness *Routine Extremities Exam Extremities: Absent cyanosis, clubbing or edema *Routine Skin Exam Skin: Present warm; Absent rash *Routine Neurological Exam Neurological: Present alert, oriented X3, moving all extremities, hearing grossly intact and normal speech Comments: reported decreased sensation on R sided Results Data Completed and Pending Labs on day of discharge: Labs from last 24 hours 05/07/23 05/07/23 05/06/23 06:45 05:09 19:54 WBC 5.7 D RBC 4.27 Hgb 13.4 Hct 40.5 MCV 94.8 MCH 31.3 H MCHC 33.0 R
--- NOTE | 2023-05-11 14:01 | CARE MANAGER ---
Attempted to contact patient related to hospital discharge and LVM. TAI Armenta
== END 2023-05-07 13:24 | disposition home or self-care (01) ==
LOC: ER 11:02 → 2ND 11:29
PROVIDERS: Admitting Provider Internal Medicine; Emergency Provider Student in an Organized Health Care Education/Training Program; PCP Internal Medicine; Visit Provider Internal Medicine
DX: R29.810 Facial weakness (principal); F17.210 Nicotine dependence, cigarettes, uncomplicated; R53.1 Weakness; Z79.899 Other long term (current) drug therapy; M62.81 Muscle weakness (generalized); I65.23 Occlusion and stenosis of bilateral carotid arteries
CPT/HCPCS: 36415; 70450; 70496; 70498; 70551; 80048; 80053; 82962; 83036; 84484; 85025; 85610; 85730; 92610; 93005; 97163; 99291; G0378; Q9967

== ENCOUNTER → 2023-05-11 08:46 | Outpatient (CLI) | payer MEDICARE, OTHER, SELFPAY ==
[2023-05-11 22:37] LABS: Amphetamine/Metha Screen,Urine Negative ng/ml (<1000); Barbiturates Screen,Urine Negative ng/ml (<200)
[2023-05-11 22:38] LABS: Benzodiazepines Screen,Urine Positive ng/ml (<200); Cannabinoid Screen,Urine Negative ng/ml (<50)
[2023-05-11 22:39] LABS: Cocaine Screen,Urine Negative ng/ml (<300)
[2023-05-11 22:40] LABS: Methadone Screen,Urine Negative ng/ml (<300); Opiate Screen,Urine Negative ng/ml (<300)
[2023-05-11 22:41] LABS: Phencyclidine Screen,Urine Negative ng/ml (<25)
== END ==
LOC: LAB.DROPOF 05-18 08:47
PROVIDERS: PCP Family Medicine; Visit Provider Family Medicine
DX: F11.20 Opioid dependence, uncomplicated (principal)
CPT/HCPCS: 80307

== ENCOUNTER 2023-05-25 18:21 | Outpatient (CLI) | payer MEDICARE, OTHER, SELFPAY ==
[2023-05-25 21:06] LABS: Amphetamine/Metha Screen,Urine Negative ng/ml (<1000); Barbiturates Screen,Urine Negative ng/ml (<200); Benzodiazepines Screen,Urine Negative ng/ml (<200); Cannabinoid Screen,Urine Negative ng/ml (<50); Cocaine Screen,Urine Negative ng/ml (<300); Methadone Screen,Urine Negative ng/ml (<300); Opiate Screen,Urine Negative ng/ml (<300); Phencyclidine Screen,Urine Negative ng/ml (<25)
[2023-05-31 15:11] LABS: Opiates Negative (Cutoff=100); Oxycodone (GC/MS) 773 ng/mL (Cutoff=100); Oxymorphone (GC/MS) 194 ng/mL (Cutoff=100)
== END 2023-05-25 23:59 ==
LOC: LAB.DROPOF 18:22
PROVIDERS: Visit Provider Family Medicine
DX: F11.20 Opioid dependence, uncomplicated (principal); Z79.899 Other long term (current) drug therapy
CPT/HCPCS: 80307; 80361; 80365; G0480